=== PATIENT | female | born 1970 | race Caucasian/White ===

== ENCOUNTER → 2024-04-28 12:27 | Outpatient (REF) | payer OTHER, SELFPAY | LOC: HWRAD 12:27 | PROVIDERS: ATTENDING PHYSICIAN Urology; FAMILY PHYSICIAN Family Medicine | DX: R33.9 Retention of urine, unspecified (principal) | CPT/HCPCS: 76770 ==

== ENCOUNTER 2024-05-11 06:23 | Day surgery (SDC) | payer OTHER, SELFPAY ==
[2024-05-11 07:59] VITALS: BP 118/74; BMI 34.2
[2024-05-11] MEDS: NORMOSOL-R/PLASMALYTE-A 1000 IV (08:10)
[2024-05-11 09:34] VITALS: BP 89/52
[2024-05-11 09:35] VITALS: BP 91/71
[2024-05-11 09:47] VITALS: BP 96/62
[2024-05-11] MEDS: ROXICODONE 5 MG PO (09:55)
[2024-05-11 10:00] VITALS: BP 87/70
[2024-05-11 10:15] VITALS: BP 94/62
== END 2024-05-11 10:34 | disposition home or self-care (01) ==
LOC: SDS 06:23
PROVIDERS: ATTENDING PHYSICIAN Urology
DX: T83.190A Other mechanical complication of urinary electronic stimulator device, initial encounter (principal); R33.9 Retention of urine, unspecified; Y82.8 Other medical devices associated with adverse incidents; M62.89 Other specified disorders of muscle; N31.9 Neuromuscular dysfunction of bladder, unspecified; N30.10 Interstitial cystitis (chronic) without hematuria
CPT/HCPCS: 64590; 64561; 72170; 76000; 93005; C1767; C1778; C1787; L8681